=== PATIENT | female | born 1980 | race Caucasian/White ===

== ENCOUNTER 2017-03-11 06:57 | Day surgery (SDC) | payer OTHER ==
[~2017-03-11] VITALS: Ht 177.8 cm; Wt 85.9 kg
[2017-03-11 07:40] VITALS: BP 123/85; PULSE 59; TEMP 98.1
[2017-03-11] MEDS ORDERED: LEXAPRO20 MG PO (07:48)
[2017-03-11] MEDS ORDERED: ADDERALL30 MG PO (07:49)
[2017-03-11 08:40] VITALS: BP 123/84; PULSE 60; TEMP 97.2
[2017-03-11 08:45] VITALS: BP 128/90; PULSE 71
[2017-03-11 09:00] VITALS: BP 128/84; PULSE 70
[2017-03-11 09:15] VITALS: BP 131/85; PULSE 65
== END 2017-03-11 09:30 | disposition home or self-care (01) ==
LOC: SDCO 06:57
DX: K52.9 Noninfective gastroenteritis and colitis, unspecified (principal); F41.8 Other specified anxiety disorders; F32.9 Major depressive disorder, single episode, unspecified; R10.9 Unspecified abdominal pain; Z98.84 Bariatric surgery status; Z80.0 Family history of malignant neoplasm of digestive organs; Z98.51 Tubal ligation status
CPT/HCPCS: J2250; J2405; J3010; J7030

== ENCOUNTER → 2022-03-11 | Outpatient (CLI) | payer BC ==
[~2022-03-11] MED LIST: ADDERALL30 MG PO; LEXAPRO20 MG PO
== END ==
LOC: MC.RAD 10:54
DX: Z12.31 Encounter for screening mammogram for malignant neoplasm of breast (principal)